=== PATIENT | female | born 1975 | race Caucasian/White ===

== ENCOUNTER 2018-05-02 20:21 | Emergency (ER) | payer OTHER ==
[~2018-05-02] VITALS: Ht 157.5 cm; Wt 81.7 kg
[~2018-05-02 20:21] MED LIST: BENZ100A PO; Bactrim Ds Tab1 EACH PO; CEPH250A PO; CEPH500 PO; CIPR500 PO; CIPRSO OU; CLIN150 PO; CLIN300 PO; CODACE30; CODACE30 PO; CODGUAEL PO; CRUTCH3 USE; CYCL10 PO; Cyclobenzaprine5 MG PO; DOXY100 PO; ERYSTE250 PO; FLUC150A PO; FLUO20; Flexeril5 MG PO; HYDACE5 PO; IBUP600 PO; IBUP800 PO; LEVFLO500 PO; MEDICAL MARIJUANA; META800 PO; METPHE20; NAPR500 PO; Norco 5-325 Ta1 EACH PO; OMEP40CA12 PO; PANT40 PO; PHENA100 PO; PROACE100 PO; PROCODE120 PO; Prednisone20 MG PO; RANI150; RANI150 PO; RXCYCL10 PO; SULTRIDS PO; TRAM50 PO
[2018-05-02] MEDS ORDERED: Norco 5-325 Ta1 EACH PO (21:39)
== END 2018-05-02 21:50 | disposition home or self-care (01) ==
LOC: ER 20:21
DX: S22.32XA Fracture of one rib, left side, initial encounter for closed fracture (principal); F17.210 Nicotine dependence, cigarettes, uncomplicated; X58.XXXA Exposure to other specified factors, initial encounter
CPT/HCPCS: 71101; 96372; 99283; J1885